=== PATIENT | female | born 1970 | race American Indian/Alaskan Native ===

== ENCOUNTER 2017-08-29 10:51 | Emergency (ER) | payer BC ==
[2017-08-29 11:25] VITALS: RESP 18
--- NOTE | 2017-08-29 11:51 | C.PDOC ---
History Of Present Illness <Hasmukh Rosen - Last Filed: 08/29/17 11:55> <Geo Garcia - Last Filed: 08/29/17 13:10> This is a 46 y/o F who was sent in by Dr. Mcginnis for adenitis. She has had right sided submandibular pain and swelling x 5 days. She was seen 3 days ago at [facility] [place] , given abx in ED and sent home with medrol dose pack. Additionally she was told that she had a "stone in the gland." She followed up with Dr. Mcginnis who saw her in the office and sent her to ED here. She denies fevers or chills. States that she has difficulty swallowing due to the pain in her right jaw/ neck. The pain is localized to this one region and does not radiate. She does not have any numbness or tingling. She reports that the meds given to her by [facility] [place] have not improved her condition at all. (Hasmukh Rosen) <Hasmukh Rosen - Last Filed: 08/29/17 11:55> <Geo Garcia - Last Filed: 08/29/17 13:10> Time Seen by Provider: 08/29/17 11:41 Chief Complaint (Nursing): Dental Pain Past Medical History Family History: States: No Known Family Hx - Social History Hx Alcohol Use: No Hx Substance Use: No - Immunization History Hx Tetanus Toxoid Vaccination: No Hx Influenza Vaccination: Yes Hx Pneumococcal Vaccination: No <Hasmukh Rosen - Last Filed: 08/29/17 11:55> Vital Signs: Last Vital Signs Temp 99.1 F 08/29/17 11:21 Pulse 88 08/29/17 11:21 Resp 18 08/29/17 11:21 BP 118/76 08/29/17 11:21 Pulse Ox 100 08/29/17 11:56 Review Of Systems Constitutional: Negative for: Fever, Chills Eyes: Negative for: Vision Change ENT: Positive for: Mouth Pain, Other (pain submandibular right jaw, difficulty swallowing due to pain). Negative for: Ear Pain Cardiovascular: Negative for: Chest Pain, Palpitations Respiratory: Negative for: Cough, Shortness of Breath, Hemoptysis Gastrointestinal: Negative for: Nausea, Vomiting Genitourinary: Negative for: Dysuria Musculoskeletal: Positive for: Neck Pain (anterior neck just below the jaw line) Neurological: Negative for: Weakness, Numbness <Hasmukh Rosen - Last Filed: 08/29/17 11:55> Physical Exam - Physical Exam Appears: No Acute Distress Skin: Warm, Dry Head: Atraumatic, Tenderness (the right submandibular area is swollen, tender to palpation) Oral Mucosa: Moist Lips: Normal Appearing Neck: Other (swelling on right extending from jaw) Lymphatic: Other (submandibular adenitis) Cardiovascular: Rhythm Regular Respiratory: Normal Breath Sounds, No Accessory Muscle Use, No Rales, No Rhonchi Neurological/Psych: Oriented x3, Normal Speech <TinoHasmukh vann - Last Filed: 08/29/17 11:55> ED Course And Treatment O2 Sat by Pulse Oximetry: 100 <TinoHasmukh vann - Last Filed: 08/29/17 11:55> Medical Decision Making <Hasmukh Rosen - Last Filed: 08/29/17 11:55> <Geo Garcia - Last Filed: 08/29/17 13:10> Medical Decision Making: discussed with Dr. Mcginnis and would like a dose of iv antibiotics and decadron and discharge home. Patient has a script from Dr. Mcginnis to continue augmentin at home along with decadron. there is no airway compromise. No sob, no chest, no nausea, no vomiting. NO signs of sulma's angina. (Geo Garcia) Disposition - Disposition Disposition Time: 11:56 <Hasmukh Rosen - Last Filed: 08/29/17 11:55> Discussed With : Eriberto Mcginnis Doctor Will See Patient In The: Office Counseled Patient/Family Regarding: Studies Performed, Diagnosis, Need For Followup, Rx Given - Disposition Disposition Time: 13:08 <Geo Garcia - Last Filed: 08/29/17 13:10> - Disposition Referrals: Eriberto Mcginnis MD [Staff Provider] - Disposition: HOME/ ROUTINE Condition: STABLE Additional Instructions: follow up with your doctor in 2 days call to make an appointment take medications as prescribed return to ER if symptoms worsens or progress Prescriptions: Naproxen [Naprosyn] 500 mg PO BID PRN #16 tab PRN Reason: Pain, Moderate (4-7) Instructions: Salivary Gland Infection Forms: [facility] (Congolese), General Discharge Instructions - Clinical Impression Clinical Impression: Adenitis, Sialadenitis
[2017-08-29] MEDS ORDERED: Dexamethasone 4 mg/1 ml IVP ONE (12:15)
[2017-08-29] MEDS ORDERED: Dexamethasone 4 mg/1 ml ONE (12:47)
[2017-08-29] MEDS ORDERED: Piperacill/Tazo 3.375gm in Dex 3.375 GM/50 ML BAG IVPB ONE (13:00)
[2017-08-29 15:19] VITALS: BP 134/82; PULSE 76; TEMP 98.5; O2SAT 98
== END 2017-08-29 14:33 | disposition home or self-care (01) ==
LOC: C.ER 10:51
DX: K11.20 Sialoadenitis, unspecified (principal); I88.9 Nonspecific lymphadenitis, unspecified
CPT/HCPCS: 96374; 99284; J1100; J2543